=== PATIENT | female | born 1990 | race Caucasian/White ===

== ENCOUNTER 2022-11-29 05:37 | Emergency (ER) | payer SELFPAY ==
[~2022-11-29] VITALS: Ht 165.1 cm; Wt 70.0 kg
[2022-11-29] MEDS ORDERED: haloperidol lactate 5mg/ml inj IM ONE (05:40)
[2022-11-29] MEDS ORDERED: LORazepam 2 mg/ml vial IM ONE (06:10)
--- NOTE | 2022-11-29 08:20 | NUR ---
FOUR POINT [facility]RAINTS REMOVED. PT FOLLOWING INSTRUCTIONS. PT ALERT AND AWARE OF SITUATION. PT VERBALIZES UNDERSTANDING AND IS ABLE TO COMMUNICATE CLEARLY AT THIS TIME. PT REFUSES SI, HI AT THIS TIME. PT STATED SHE HAS A STRESSFUL LIVING SITUATION AND WAS HAVING A HARD TIME THIS MORNING. PT REPORTS A "POSSIBLE DIAGNOSIS OF BIPOLAR", PT DENIES PAST EPISODES OF SI. PT HAS SMALL SUPERFICIAL SCRAPE ON LEFT WRIST WHICH SHE REPORTS WAS SELF HARM FOR PLEASURE.
[2022-11-29 08:36] LABS: BASOPHILS # (AUTO) 0.1 X10'3 (0-0.2); BASOPHILS % (AUTO) 0.3 % (0-1); EOSINOPHILS % (AUTO) 0 % (0-6); HEMATOCRIT 42.7 % (35.0-45.0); HEMOGLOBIN 14.4 g/dl (12.0-16.0); LYMPHOCYTES # (AUTO) 1.8 X10'3 (1.1-4.8); LYMPHOCYTES % (AUTO) 11.9 % (21-51); MEAN CORPUSCULAR HEMOGLOBIN 31.3 PG (27.0-31.0); MEAN CORPUSCULAR HGB CONC 33.7 g/dL (33.0-36.5); MEAN CORPUSCULAR VOLUME 92.7 FL (78-98); MEAN PLATELET VOLUME 10.2 FL (7.4-10.4); MONOCYTES # (AUTO) 0.8 X10'3 (0-0.9); MONOCYTES % (AUTO) 5.1 % (2-12); NEUTROPHILS # (AUTO) 12.6 X10'3 (1.8-7.7); NEUTROPHILS % (AUTO) 82.7 % (42-75); PLATELET COUNT 193 X10'3 (140-440); RED BLOOD COUNT 4.61 X10'6 (4.20-5.60); RED CELL DISTRIBUTION WIDTH 13.2 % (11.5-14.5); WHITE BLOOD COUNT 15.2 X10'3 (4.5-11.0)
[2022-11-29 08:50] LABS: ALANINE AMINOTRANSFERASE 38 U/L (12-78); ALBUMIN/GLOBULIN RATIO 1.3 (1.1-1.5); ALKALINE PHOSPHATASE 61 IU/L (46-116); ANION GAP 13 (8-16); ASPARTATE AMINO TRANSFERASE 29 U/L (10-37); BILIRUBIN,TOTAL 0.6 MG/DL (0.1-1.0); BLOOD UREA NITROGEN 11 MG/DL (7-18); BUN/CREATININE RATIO 12.1 (10.0-20.0); CALCIUM 8.9 MG/DL (8.5-10.1); CHLORIDE 105 MMOL/L (99-107); CREATININE 0.91 MG/DL (0.40-0.90); GLUCOSE 92 MG/DL (70-104); POTASSIUM 3.4 MMOL/L (3.5-5.1); SODIUM 140 MMOL/L (135-145); TOTAL CARBON DIOXIDE 21.6 MMOL/L (24-32); TOTAL PROTEIN 7.2 G/DL (6.4-8.2); eGFR 71 ML/MIN
[2022-11-29 08:58] LABS: ETHANOL < 0.010 GM/DL (0.0-0.010)
[2022-11-29] MEDS ORDERED: POTASSIUM BICARB 20meq eff tab 20 MEQ TABLET.EFF PO ONE (11:30)
[2022-11-29 12:37] LABS: HCG SERUM QL NEGATIVE
--- NOTE | 2022-11-29 13:51 | NUR ---
PT AMBULATED TO BATHROOM W/O ASSIST. URINE SAMPLE PROVIDED.
[2022-11-29 14:09] LABS: URINE HCG NEGATIVE (NEG)
[2022-11-29 14:23] LABS: URINE AMPHETAMINE SCREEN NEGATIVE (Neg); URINE BARBITUATE SCREEN NEGATIVE (Neg); URINE BENZODIAZEPINES SCREEN NEGATIVE (Neg); URINE CANNABINOID SCREEN POSITIVE (Neg); URINE COCAINE SCREEN NEGATIVE (Neg); URINE METHADONE SCREEN NEGATIVE (Neg); URINE OPIATE SCREEN NEGATIVE (Neg); URINE PHENCYCLIDINE SCREEN NEGATIVE (Neg)
--- NOTE | 2022-11-29 17:05 | NUR ---
Pt. ambulated over from the Main ER accompanied by Tech. She reports she goes by, "." Pt's belongings were inventoried and she changed into green scrubs.
--- NOTE | 2022-11-29 18:32 | NUR ---
Assumed patient care from REJI Blair. The patient has just been brought from the main ER. She is sleeping quietly.
--- NOTE | 2022-11-29 19:14 | NUR ---
Note briana in EDM - 11/29/22 at 1917 by JOEL Call from [facility]. This patient will be admited in about 20 minutes. The patient makes word salad type statements. She is cooperative and delusional.
[2022-11-29] MEDS ORDERED: NO HOME MEDS (19:43)
--- NOTE | 2022-11-29 19:44 | NUR ---
Patient interviewed 1:1 at bedside. Patient is awake to person, place and year, not completely to situation. The patient is anxious. She states she has been in treatment for Bipolar 2. She was taking Seroquel and other medications but not now. Patient does have a therapist, she does not elaborate. The patient speaks in a rapid manner, she states she will take no medications. The patient believes she is being "manipulated" by her bosses whom she lives with. The patient states she wants to return home to [place]. At this time the patient is cooperative with this short story writer. She denies S/I, H/I or any hallucinations.
--- NOTE | 2022-11-29 21:12 | NUR ---
Patient is sleeping on her right side. She has been given a warm blanket. In view from nurses station. No distress noted.
--- NOTE | 2022-11-29 22:21 | NUR ---
Patient awakens, asks about ambient temp, she then returns to sleep.
--- NOTE | 2022-11-29 22:29 | NUR ---
Packet sent to [facility].
--- NOTE | 2022-11-29 23:18 | NUR ---
Patient up to bathroom to void, then back to sleep.
--- NOTE | 2022-11-30 | NUR ---
Patient awoke, self repositioned. She returned to sleep.
--- NOTE | 2022-11-30 01:12 | NUR ---
Patient is sleeping on her left side. No distress.
--- NOTE | 2022-11-30 02:53 | NUR ---
Patient is sleeping quietly. No distress. In view from nurses station.
--- NOTE | 2022-11-30 04:01 | NUR ---
Patient is awake, up to void. No distress. Patient states that she is feeling better.
--- NOTE | 2022-11-30 06:04 | NUR ---
Patient is sleeping quietly, no distress.
[2022-11-30 06:42] LABS: CLARITY,URINE CLOUDY (Clear); COLOR,URINE YELLOW (Yellow); GLUCOSE, URINE NEGATIVE (Neg); KETONES,URINE >=80 mg/dl (Neg); LEUKOCYTE ESTERASE ,URINE NEGATIVE (Neg); NITRITES, URINE NEGATIVE (Neg); OCCULT BLOOD,URINE NEGATIVE (Neg); PROTEIN,URINE TRACE mg/dl (Neg); UROBILINOGEN,URINE 0.2 E.U/dL (0.2-1.0)
[2022-11-30 06:48] LABS: UA COLLECTION TYPE CLN CATCH MIDSTREAM
[2022-11-30 06:49] LABS: CAL OXALATE CRYSTALS 4+ /HPF (NEGATIVE); SQUAMOUS EPITHELIAL CELL,UR MANY /LPF (FEW)
[2022-11-30 06:51] LABS: BACTERIA,URINE 1+ /HPF (Neg); RBC,URINE 0-2 /HPF (0-2); WBC,URINE 0-4 /HPF (0-4)
--- NOTE | 2022-11-30 06:52 | NUR ---
Assumed care of patient that appears to be sleeping on her right side. No s/sx of distress.
--- NOTE | 2022-11-30 07:25 | NUR ---
Patient has woke up, and is sitting on the side of her bed. Denies needs.
--- NOTE | 2022-11-30 10:15 | NUR ---
Patient speaking to [facility] nurse at this time.
--- NOTE | 2022-11-30 11:38 | NUR ---
Patient relaxing in bed while the TV is on in front of her. Denies needs.
--- NOTE | 2022-11-30 13:25 | NUR ---
Received call from [facility] for 1:1. They will present to MD, and will call if accepted.
--- NOTE | 2022-11-30 14:05 | NUR ---
Patient has been accepted to [facility]. No pickup time yet.
--- NOTE | 2022-11-30 15:44 | NUR ---
Patient is sitting on the side of her bed talking to her neighbor.
--- NOTE | 2022-11-30 16:18 | NUR ---
Patient to be picked up at 2000 for [facility].
--- NOTE | 2022-11-30 18:40 | NUR ---
Assumed care. Patient sitting in bed watching TV. Plan to transfer to [facility] at 1999.
[2022-11-30] MEDS ORDERED: FLUO10CA51 PO (19:05)
--- NOTE | 2022-11-30 19:13 | NUR ---
Med req updated. Takes prozac at home.
--- NOTE | 2022-11-30 19:50 | NUR ---
Patient belongings returned and her ID and clothing. Transport with [facility] arrived to transfer her to [facility]. VS stable [id number] Discharged at this time.
[2022-11-30 22:18] VITALS: BP 141/95
== END 2022-11-30 19:50 | disposition still patient (30) ==
LOC: ER 05:38
DX: R45.851 Suicidal ideations (principal); Z20.822 Contact with and (suspected) exposure to COVID-19
CPT/HCPCS: 36415; 80053; 80305; 80320; 81001; 81025; 84443; 84703; 85025; 87811; 96372; 99285; J1630; J2060